=== PATIENT | female | born 1980 | race Two or more races ===

== ENCOUNTER 2020-09-06 10:45 | Inpatient (IN) | payer OTHER ==
[~2020-09-06] VITALS: Ht 154.9 cm; Wt 90.7 kg
[2020-09-06] MEDS ORDERED: EXCEDRIN MIGRA1 EAC1 PO (13:42)
[2020-09-06] MEDS ORDERED: IRON PO (13:42)
[2020-09-09] MEDS ORDERED: IRON236 MG PO (13:47)
== END 2020-09-12 10:13 | disposition home or self-care (01) | DRG 743 ==
LOC: O/R 09-09 05:56 → SURH 09-09 07:00 → OB/GYN 09-09 13:59
PROVIDERS: ADMIT Specialist; ATTEND Specialist
PROC: 0UT10ZZ Resection of Left Ovary, Open Approach (ICD-10-PCS; 2020-09-09)
PROC: 0UT50ZZ Resection of Right Fallopian Tube, Open Approach (ICD-10-PCS; 2020-09-09)
PROC: 0UB50ZZ Excision of Right Fallopian Tube, Open Approach (ICD-10-PCS; 2020-09-09)
PROC: 0UT90ZZ Resection of Uterus, Open Approach (ICD-10-PCS; principal; 2020-09-09 07:00)
DX: D25.0 Submucous leiomyoma of uterus (principal); D25.1 Intramural leiomyoma of uterus; D25.2 Subserosal leiomyoma of uterus; N83.8 Other noninflammatory disorders of ovary, fallopian tube and broad ligament; N80.0 Endometriosis of uterus; N80.1 Endometriosis of ovary; D64.9 Anemia, unspecified

== ENCOUNTER 2022-01-23 08:25 | Outpatient (CLI) | payer OTHER ==
[~2022-01-23 08:25] MED LIST: EXCEDRIN MIGRA1 EAC1 PO; IRON PO; IRON236 MG PO
== END 2022-01-23 08:41 | disposition home or self-care (01) ==
LOC: LAB 08:25
PROVIDERS: ATTEND Specialist
DX: R10.9 Unspecified abdominal pain (principal); E03.9 Hypothyroidism, unspecified; R80.9 Proteinuria, unspecified; R73.03 Prediabetes; Z12.11 Encounter for screening for malignant neoplasm of colon; Z12.4 Encounter for screening for malignant neoplasm of cervix; Z11.1 Encounter for screening for respiratory tuberculosis; Z11.59 Encounter for screening for other viral diseases; Z11.3 Encounter for screening for infections with a predominantly sexual mode of transmission; Z11.4 Encounter for screening for human immunodeficiency virus [HIV]; Z13.0 Encounter for screening for diseases of the blood and blood-forming organs and certain disorders involving the immune mechanism; Z13.220 Encounter for screening for lipoid disorders; Z13.228 Encounter for screening for other metabolic disorders; Z13.29 Encounter for screening for other suspected endocrine disorder; N39.0 Urinary tract infection, site not specified; E78.2 Mixed hyperlipidemia

== ENCOUNTER 2022-01-25 08:26 | Outpatient (CLI) | payer OTHER | END 2022-01-25 08:46 | disposition home or self-care (01) | LOC: TOM 08:26 | PROVIDERS: ATTEND General Practice | DX: R10.9 Unspecified abdominal pain (principal) ==

== ENCOUNTER 2022-01-29 12:00 | Outpatient (CLI) | payer OTHER | END 2022-01-29 12:08 | disposition home or self-care (01) | LOC: SONOGRAMA 12:00 | PROVIDERS: ATTEND Specialist | DX: R19.00 Intra-abdominal and pelvic swelling, mass and lump, unspecified site (principal) ==

== ENCOUNTER 2022-02-06 12:24 | Emergency (ER) | payer OTHER ==
[~2022-02-06] VITALS: Ht 154.9 cm; Wt 88.0 kg
== END 2022-02-06 18:57 | disposition home or self-care (01) ==
LOC: ER 12:24
DX: N83.8 Other noninflammatory disorders of ovary, fallopian tube and broad ligament (principal); R19.03 Right lower quadrant abdominal swelling, mass and lump

== ENCOUNTER 2022-02-08 10:45 | Outpatient (CLI) | payer OTHER | END 2022-02-08 10:46 | disposition home or self-care (01) | LOC: LAB 10:45 | PROVIDERS: ATTEND Specialist | DX: G89.3 Neoplasm related pain (acute) (chronic) (principal); R97.0 Elevated carcinoembryonic antigen [CEA]; R97.1 Elevated cancer antigen 125 [CA 125] ==

== ENCOUNTER 2022-02-12 08:25 | Outpatient (CLI) | payer OTHER | END 2022-02-12 08:37 | disposition home or self-care (01) | LOC: MRI 08:25 | PROVIDERS: ATTEND Specialist | DX: R10.2 Pelvic and perineal pain (principal); R19.00 Intra-abdominal and pelvic swelling, mass and lump, unspecified site | CPT/HCPCS: 72197 ==

== ENCOUNTER → 2022-08-08 | Outpatient (CLI) | payer OTHER | END | disposition home or self-care (01) | LOC: SONOGRAMA 07:00 | PROVIDERS: ATTEND General Practice | DX: G45.9 Transient cerebral ischemic attack, unspecified (principal); R10.9 Unspecified abdominal pain; N80.102 Endometriosis of left ovary, unspecified depth | CPT/HCPCS: 70553 ==

== ENCOUNTER 2022-08-10 10:54 | Outpatient (CLI) | payer OTHER | END 2022-08-10 11:07 | disposition home or self-care (01) | LOC: RAD 10:54 | PROVIDERS: ATTEND General Practice | DX: R10.9 Unspecified abdominal pain (principal); R07.89 Other chest pain; R06.02 Shortness of breath ==

== ENCOUNTER 2022-10-17 09:38 | Outpatient (CLI) | payer OTHER | END 2022-10-17 12:43 | disposition home or self-care (01) | LOC: RAD 09:38 | PROVIDERS: ATTEND General Practice | DX: M54.59 Other low back pain (principal) ==

== ENCOUNTER 2022-10-31 07:43 | Outpatient (CLI) | payer OTHER | END 2022-10-31 10:20 | disposition home or self-care (01) | LOC: LAB 07:43 | DX: Z01.810 Encounter for preprocedural cardiovascular examination (principal); D50.9 Iron deficiency anemia, unspecified; E83.51 Hypocalcemia; D68.9 Coagulation defect, unspecified; N39.0 Urinary tract infection, site not specified ==

== ENCOUNTER 2022-11-05 12:30 | Inpatient (IN) | payer OTHER ==
[~2022-11-05] VITALS: Ht 154.9 cm; Wt 88.9 kg
[2022-11-09] MEDS ORDERED: SINGULAIR 5MG5 MG PO (11:08)
[2022-11-12] MEDS ORDERED: IBUPROFEN800 MG PO (07:01)
== END 2022-11-12 08:38 | disposition home or self-care (01) | DRG 743 ==
LOC: O/R 11-09 06:00 → OB/GYN 11-09 06:00
PROVIDERS: ADMIT Specialist; ATTEND Specialist
PROC: 0UT00ZZ Resection of Right Ovary, Open Approach (ICD-10-PCS; principal; 2022-11-09 12:15)
DX: N83.291 Other ovarian cyst, right side (principal); Z20.822 Contact with and (suspected) exposure to COVID-19

== ENCOUNTER 2022-11-05 15:07 | Outpatient (CLI) | payer OTHER | END 2022-11-05 15:15 | disposition home or self-care (01) | LOC: RAD 15:07 | PROVIDERS: ATTEND Specialist | DX: Z01.811 Encounter for preprocedural respiratory examination (principal) ==

== ENCOUNTER 2023-02-14 07:19 | Outpatient (CLI) | payer OTHER ==
[~2023-02-14 07:19] MED LIST changes: +IBUPROFEN800 MG PO; +SINGULAIR 5MG5 MG PO
== END 2023-02-14 07:29 | disposition home or self-care (01) ==
LOC: MAMO-SONO 07:19
PROVIDERS: ATTEND Specialist
DX: Z12.31 Encounter for screening mammogram for malignant neoplasm of breast (principal)

== ENCOUNTER 2024-02-07 13:14 | Emergency (ER) | payer OTHER ==
[~2024-02-07] VITALS: Ht 154.9 cm; Wt 93.0 kg
[~2024-02-07 13:14] MED LIST changes: +ZYRTEC10 MG PO
[2024-02-07] MEDS ORDERED: NEURONTIN800 MG PO (13:55)
[2024-02-07] MEDS ORDERED: ORPHENADRINE CITRATE 30 MG/ML AMPUL IM STA (16:11)
[2024-02-07] MEDS ORDERED: DEXAMETHASONE SODIUM PHOSPHATE 4 MG/ML VIAL IM STA (16:11)
== END 2024-02-07 17:05 | disposition home or self-care (01) ==
LOC: ER 13:15
DX: M62.838 Other muscle spasm (principal); M79.7 Fibromyalgia

== ENCOUNTER 2024-02-11 09:33 | Emergency (ER) | payer OTHER ==
[~2024-02-11] VITALS: Ht 154.9 cm; Wt 91.6 kg
[~2024-02-11 09:33] MED LIST changes: +NEURONTIN800 MG PO
[2024-02-11] MEDS ORDERED: KETO10TA2 PO (10:08)
[2024-02-11] MEDS ORDERED: MOBIC7.5 MG PO (10:08)
[2024-02-11] MEDS ORDERED: DEXAMETHASONE SODIUM PHOSPHATE 4 MG/ML VIAL IM STA (12:00)
[2024-02-11] MEDS ORDERED: KETOROLAC TROMETHAMINE 60 MG VIAL IM STA (12:00)
== END 2024-02-11 13:04 | disposition home or self-care (01) ==
LOC: ER 09:35
DX: M54.2 Cervicalgia (principal)
CPT/HCPCS: 96372; 99282; J1100; J1885

== ENCOUNTER 2024-02-12 10:48 | Outpatient (CLI) | payer OTHER ==
[~2024-02-12 10:48] MED LIST changes: +KETO10TA2 PO; +MOBIC7.5 MG PO
== END 2024-02-12 11:11 | disposition home or self-care (01) ==
LOC: MRI 10:48
PROVIDERS: ATTEND Orthopaedic Surgery
DX: M48.02 Spinal stenosis, cervical region (principal)
CPT/HCPCS: 72141

== ENCOUNTER 2024-02-18 07:16 | Outpatient (CLI) | payer OTHER | END 2024-02-18 07:27 | disposition home or self-care (01) | LOC: SONOGRAMA 07:16 | DX: N83.209 Unspecified ovarian cyst, unspecified side (principal); Z32.01 Encounter for pregnancy test, result positive ==

== ENCOUNTER 2024-02-18 14:18 | Outpatient (CLI) | payer OTHER | END 2024-02-18 14:19 | disposition home or self-care (01) | LOC: LAB 14:18 | PROVIDERS: ATTEND Specialist | DX: Z32.00 Encounter for pregnancy test, result unknown (principal) ==